=== PATIENT | male | born 1965 | race Caucasian/White ===

== ENCOUNTER 2023-09-05 00:55 | Emergency (ER) | payer BC, SELFPAY ==
[2023-09-05 00:57] VITALS: BP 157/104
--- NOTE | 2023-09-05 01:12 | ED.GENMED ---
History of Present Illness
General
Chief Complaint: Facial Problem
Source: patient
Exam Limitations: none
Time Seen by Provider: 09/05/23 01:04
Nursing documentation reviewed up to this point in time: agreed with
History of Present Illness
History of Present Illness:
Patient status post Mohs surgery 3 days ago secondary to basal cell carcinoma, presents to ED secondary to worsening left ear pain, radiating to his left face since this afternoon. Denies fever or chills. Denies new trauma. Denies swelling.
Denies difficulty with hearing. Denies nausea or vomiting. Patient states that he has had postprocedural pain, but has significantly worsened this afternoon, raising concern for potential infection.
Past History
Past History
ED Past Medical History: None
ED Past Surgical History: None
Social History
Living: with family
Employment: Employed
Review of Systems
Review of Systems
Allergies reviewed?: Yes
All Other Systems: ROS reviewed and negative except as documented in HPI and ROS
Constitutional: Reports no symptoms; Denies fever
Musculoskeletal: Reports no symptoms
Skin: Reports other (left ear pain)
Neurological: Reports no symptoms; Denies headache
Phy Exam
Physical Exam
Physical Exam:
Physical Exam
General: mild painful distress, not acutely ill. afebrile
Neck: supple. no meningeal signs
Neuro: alert and oriented. no focal neurological deficits
Skin: left ear: dry blood noted over upper portion of outer ear, with minimal erythema, but mildly tender to palpation. no active bleeding.
Psychiatric: well kept. interactive and cooperative
Extremities: no edema. no calf tenderness.
Course
Orders/Labs/Results
Orders:
Orders
09/05/23 01:12
Cephalexin Monohydrate [Keflex] 500 mg PO NOW STA
Ibuprofen [Motrin] 400 mg PO NOW STA
Oxycodone/Acetaminophen [Percocet 5/325] 1 tablet PO NOW STA
Vital Signs
Initial and Last Documented VS:
Initial Vital Signs
Temp Pulse Resp BP Pulse Ox
98.4 F 76 18 157/104 100
09/05/23 00:57 09/05/23 00:57 09/05/23 00:57 09/05/23 00:57 09/05/23 00:57
Last Documented Vital Signs
Temp Pulse Resp BP Pulse Ox
98.4 F 76 18 157/104 100
09/05/23 00:57 09/05/23 00:57 09/05/23 00:57 09/05/23 00:57 09/05/23 00:57
MDM/Problems Addressed
MDM/Problems Addressed:
History and exam concerning for likely worsening postoperative pain, but difficult to exclude potential development of infection, as patient is 3 days out of procedure. Otherwise, patient is afebrile, hemodynamically stable, and nontoxic-appearing.
Patient will be started on short course of antibiotics, along with pain medication, as well as recommendation to follow-up with his surgeon on Thursday for reevaluation. Patient expresses understanding at time of discharge.
*Critical Care Note
Total Time (30-74mins, 75-104mins- exclusive of procedures): Not Applicable
ED Attending Note
-
Portions of this chart may have been created with voice recognition software.� Occasional wrong word or��sound alike� substitutions may have occurred due to the inherent limitations of voice recognition software.
Discharge Plan
Departure
Patient Disposition: Home (Routine Discharge)
Date of Disposition: 09/05/23
Time of Disposition: 01:13
Patient with high blood pressure during this ER visit?: Yes
Discharge Problem:
Post-operative pain
Instructions: Managing pain after surgery
Prescriptions:
New
cephalexin 500 mg capsule
500 mg PO TID Qty: 14 0RF
oxycodone-acetaminophen [Percocet] 5-325 mg Tablet
1 tab PO Q6HPRN PRN (Reason: pain) Qty: 12 0RF
No Action
oxycodone-acetaminophen 5 MG/325 MG tablet
1 - 2 tab PO Q4HPRN PRN (Reason: severe pain) Qty: 20 0RF
Referrals:
Brayan Roy MD [Consulting Staff] -
Activity Restrictions/Additional Instructions:
As discussed, please follow-up with your community integration specialist on Thursday for reevaluation. Your prescriptions have been sent electronically to [facility] on [facility] in [place].
Interventions
Interventions:
*Risk Screen - Suicide Last Done: 09/05/23 00:57
*General Assessment Last Done: 09/05/23 00:57
*Neglect/Abuse Screening Last Done: 09/05/23 00:57
ED- Fall Risk Assessment Last Done: 09/05/23 00:57
*ED COVID-19 Vaccine History Last Done: 09/05/23 01:25
ED- Neurological Assessment Last Done: 09/05/23 01:25
ED-Skin Assessment Last Done: 09/05/23 01:25
Discharge Date and Time
Print Language: ANGOLAN
[2023-09-05] MEDS: PERCOCET 5/325 1 TABLET PO (01:19)
[2023-09-05] MEDS: KEFLEX 500 MG PO (01:20)
[2023-09-05] MEDS: MOTRIN 400 MG PO (01:20)
== END 2023-09-05 01:30 | disposition home or self-care (01) ==
LOC: EMR 00:55
PROVIDERS: EMERGENCY PHYSICIAN Emergency Medicine; FAMILY PHYSICIAN Internal Medicine
DX: G89.18 Other acute postprocedural pain (principal); H92.02 Otalgia, left ear; Z85.828 Personal history of other malignant neoplasm of skin
CPT/HCPCS: 99282

== ENCOUNTER → 2024-01-18 07:28 | Outpatient (REF) | payer BC, SELFPAY | LOC: RAD 07:28 | PROVIDERS: ATTENDING PHYSICIAN Internal Medicine; FAMILY PHYSICIAN Internal Medicine | DX: H47.099 Other disorders of optic nerve, not elsewhere classified, unspecified eye (principal) | CPT/HCPCS: 70496; 70498; Q9967 ==

== ENCOUNTER → 2024-02-09 08:09 | Outpatient (REF) | payer BC, SELFPAY | LOC: RCS 08:09 | PROVIDERS: ATTENDING PHYSICIAN Internal Medicine; FAMILY PHYSICIAN Internal Medicine | DX: H47.099 Other disorders of optic nerve, not elsewhere classified, unspecified eye (principal) | CPT/HCPCS: 93307 ==

== ENCOUNTER 2024-11-02 06:18 | Day surgery (SDC) | payer BC, SELFPAY | END 2024-11-02 13:33 | disposition home or self-care (01) | LOC: GI 06:18 | PROVIDERS: ATTENDING PHYSICIAN Internal Medicine Gastroenterology | DX: Z12.11 Encounter for screening for malignant neoplasm of colon (principal); K57.30 Diverticulosis of large intestine without perforation or abscess without bleeding; D12.8 Benign neoplasm of rectum; K64.8 Other hemorrhoids; Z86.0100 Personal history of colon polyps, unspecified | CPT/HCPCS: 45385; 88305 ==